=== PATIENT | female | born 1995 | race Caucasian/White ===

== ENCOUNTER 2018-09-27 10:18 | Inpatient (IN) | payer BC, MEDICAID, OTHER ==
[2018-09-27] VITALS (24 sets, daily range): BP systolic 93–121; BP diastolic 56–76; PULSE 74–120; RESP 7–29; Ht 154.9 cm; Wt 56.0 kg
[~2018-09-27] VITALS: Ht 154.9 cm; Wt 56.0 kg
[2018-09-27] MEDS ORDERED: SOD CHLORIDE 0.9% 500 ML IV STA (11:49)
[2018-09-27] MEDS ORDERED: ONDANSETRON 4 MG INJ IV STA (11:49)
[2018-09-27] MEDS ORDERED: FAMOTIDINE 20 MG INJ IV ONE (12:00)
--- NOTE | 2018-09-27 13:12 | ERD ---
ER Documentation Chief Complaint Chief Complaint sent fr clinic nausea vomitting & ap w/fever HPI 22-year-old female patient with no significant past medical history presents to ED complaining of an acute onset of diffuse abdominal pain that started yesterday associated with nonbilious nonbloody vomiting and nonmucoid nonbloody diarrhea that started yesterday, few episodes. Describes her pain is sharp and rates it a 10 out of 10. She reports that she has decreased appetite. Denies any chest pain, shortness of breath, wheezing, dysuria, urgency, frequency. ROS All systems reviewed and are negative except as per history of present illness. Medications Home Meds Active Scripts Ondansetron Hcl* (Zofran*) 4 Mg Tablet, 4 MG PO Q6H PRN for NAUSEA AND OR VOMITING, #15 TAB Prov:AILEEN CALDWELL S. 09/28/18 Metronidazole* (Flagyl*) 500 Mg Tablet, 500 MG PO TID for 7 Days, #21 TAB Prov:THALIA CALDWELLP S. 09/28/18 Ciprofloxacin Hcl* (Ciprofloxacin Hcl*) 250 Mg Tablet, 250 MG PO BID for 7 Days, #14 TAB Prov:THALIA CALDWELLP S. 09/28/18 Hydrocodone Bit-Acetaminophen (Hydrocodone Bit-APAP) 5-325MG Tablet, 1 TAB PO Q6H PRN for PAIN LEVEL 4-7, #14 TAB Prov:THALIA CALDWELLP S. 09/28/18 Allergies Allergies: Coded Allergies: No Known Allergy (Unverified , 09/27/18) PMhx/Soc Hx Alcohol Use: No Hx Substance Use: No Hx Tobacco Use: No Smoking Status: Never smoker FmHx Family History: No diabetes, No coronary disease Physical Exam Vitals Vital Signs Date Temp Pulse Resp B/P (MAP) Pulse Ox O2 O2 Flow FiO2 Time Delivery Rate 09/27/18 99.4 105 18 118/74 98 10:37 (89) Physical Exam Const: [id number], well-nourished. In no acute distress. Head: Atraumatic, normocephalic Eyes: Normal Conjunctiva without injection. No purulent discharge. ENT: Normal external ear, nose. Moist oropharynx without tonsillar exudates. Non-erythematous pharynx. Uvula midline. No drooling. No trismus. Neck: No cervical midline tenderness. Full range of motion. No meningismus. No cervical lymphadenopathy. No JVD. Resp: Clear to auscultation bilaterally. No wheezing, rhonchi, rales, or crackles. No accessory muscle use. No retractions. Cardio: Regular rate and rhythm. No murmurs, rubs or gallops. Abd: Soft, lower quadrant tenderness, non distended. Normal bowel sounds. No palpable masses. No rebound tenderness. No guarding. Positive McBurney's point. Positive obturator sign. Skin: No petechiae or rashes Back: No midline tenderness. No CVA tenderness. Ext: No cyanosis, or edema. Neur: Awake and alert. Normal gait. Normal coordination. Psych: Normal Mood and Affect Result Diagram: 09/28/1844209/28/18442 Results 24 hrs Laboratory Tests Test 09/27/18 12:03 09/27/18 12:08 POC Beta HCG, Qualitative NEGATIVE White Blood Count 27.5 10^3/ul Red Blood Count 5.15 10^6/ul Hemoglobin 13.9 g/dl Hematocrit 41.5 % Mean Corpuscular Volume 80.6 fl Mean Corpuscular Hemoglobin 27.0 pg Mean Corpuscular Hemoglobin Concent 33.5 g/dl Red Cell Distribution Width 12.5 % Platelet Count 348 10^3/UL Mean Platelet Volume 9.7 fl Immature Granulocytes % 0.700 % Neutrophils % % Segmented Neutrophils % (Manual) 87 % Lymphocytes % % Lymphocytes % (Manual) 6 % Monocytes % % Monocytes % (Manual) 7 % Eosinophils % % Basophils % % Nucleated Red Blood Cells % 0.0 /100WBC Immature Granulocytes # 0.200 10^3/ul Neutrophils # 10^3/ul Lymphocytes (Manual) 1.6 10^3/ul Lymphocytes # 10^3/ul Monocytes # 10^3/ul Monocytes # (Manual) 1.9 10^3/ul Eosinophils # 10^3/ul Basophils # 10^3/ul Nucleated Red Blood Cells # 10^3/ul White Cell Morphology Comment @See below Platelet Estimate NORMAL Anisocytosis 2+ Microcytosis 2+ Red Cell Morphology Comment @See below Urine Color YELLOW Urine Clarity SLIGHTLY CLOUDY Urine pH 6.0 Urine Specific [place] 1.013 Urine Ketones 1+ mg/dL Urine Nitrite NEGATIVE mg/dL Urine Bilirubin NEGATIVE mg/dL Urine Urobilinogen NEGATIVE mg/dL Urine Leukocyte Esterase 1+ Caren/ul Urine Microscopic RBC 110 /HPF Urine Microscopic WBC 8 /HPF Urine Squamous Epithelial Cells FEW /HPF Urine Bacteria FEW /HPF Urine Mucus FEW /HPF Urine Hemoglobin 3+ mg/dL Urine Glucose NEGATIVE mg/dL Urine Total Protein NEGATIVE mg/dl Path Consult Signing Pathologist IDA JONES MD Sodium Level 139 mmol/L Potassium Level 3.9 mmol/L Chloride Level 97 mmol/L Carbon Dioxide Level 28 mmol/L Anion Gap 14 Blood Urea Nitrogen 4 mg/dl Creatinine 0.39 mg/dl Est Glomerular Filtrat Rate mL/min > 60 mL/min Glucose Level 131 mg/dl Calcium Level 9.8 mg/dl Total Bilirubin 1.5 mg/dl Direct Bilirubin 0.00 mg/dl Indirect Bilirubin 1.5 mg/dl Aspartate Amino Transf (AST/SGOT) 23 IU/L Alanine Aminotransferase (ALT/SGPT) 10 IU/L Alkaline Phosphatase 85 IU/L Total Protein 8.6 g/dl Albumin 4.8 g/dl Globulin 3.80 g/dl Albumin/Globulin Ratio 1.26 Lipase 34 U/L Current Medications Medications Dose Sig/Ruddy Start Time Status Last (Trade) Ordered Route PRN Stop Time Admin Dose Reason Admin Sodium 500 ml @ Q1H STAT 09/27/18 DC 09/27/18 Chloride 500 mls/hr IV 11:49 12:05 09/27/18 12:48 Ondansetron 4 mg ONCE STAT 09/27/18 DC 09/27/18 HCl (Zofran IV 11:49 12:05 Inj) 09/27/18 11:55 Famotidine 20 mg ONCE ONCE 09/27/18 DC 09/27/18 (Pepcid Iv) IV 12:00 12:05 09/27/18 12:01 Ampicillin 100 ml @ ONCE ONCE 09/27/18 DC 09/27/18 Sodium/ 100 mls/hr IVPB 13:30 14:27 Sulbactam 09/27/18 14:29 Sodium IV Flush 3 ml PER 09/27/18 DC (NS 3 ml) PROTOCOL IV 13:30 09/28/18 14:19 Ondansetron 4 mg Q6H PRN 09/27/18 DC HCl (Zofran IV 13:30 Inj) NAUSEA/VOMITI 09/28/18 14:19 NG 650 mg Q6H PRN 09/27/18 DC Acetaminophen PO .PAIN 1-3 13:30 (Tylenol OR TEMP 09/27/18 16:25 Tab) 1 tab Q6H PRN 09/27/18 DC 09/27/18 Acetaminophen PO .MOD PAIN 13:30 23:40 / 4-6 09/28/18 14:19 Hydrocodone Bitart ([place] (5/325)) Morphine 2 mg Q4H PRN 09/27/18 DC Sulfate IV .SEVERE 13:30 (morphine) PAIN 7-10 09/28/18 14:19 Docusate 100 mg Q12H PRN 09/27/18 DC Sodium PO 13:30 (Colace) .CONSTIPATION 09/28/18 14:19 Magnesium 30 ml DAILY PRN 09/27/18 DC Hydroxide PO 13:30 (Milk Of Mag) .CONSTIPATION 09/28/18 14:19 Lorazepam 0.5 mg Q6H PRN 09/27/18 DC (Ativan) IV ANXIETY 13:30 09/28/18 14:19 Sodium 1,000 ml @ Q10H IV 09/27/18 DC 09/27/18 Chloride 100 mls/hr 13:28 16:11 09/28/18 14:19 Albuterol/ 3 ml Q4H RESP 09/27/18 DC Ipratropium THERAPY PRN 13:30 (Duoneb) HHN 09/28/18 14:19 SHORTNESS OF BREATH Hydralazine 10 mg Q6H PRN 09/27/18 DC HCl IV ELEVATED 13:30 (Apresoline) BLOOD 09/28/18 14:19 PRESSURE 1 tab Q5M PRN 09/27/18 DC Nitroglycerin SL ANGINA 13:30 09/28/18 14:19 (Nitroglyceri n (Sl Tab) 0.4 Mg) Ondansetron 4 mg BRIDGE ORDER 09/27/18 DC HCl (Zofran PRN IV 13:30 Inj) NAUSEA/VOMITI 09/27/18 15:09 NG 650 mg ER BRIDGE 09/27/18 DC Acetaminophen PRN PO 13:30 (Tylenol .MILD PAIN 09/27/18 15:09 Tab) 1-3 OR TEMP Procedures/MDM 22 year old female patient with no significant past medical history presents to ED complaining of diffuse abdominal pain patient is afebrile and nontoxic-appearing. Patient was further worked up with CBC, CMP, lipase, UA, CT of the abdomen and pelvis without contrast. Patient's pain and symptoms have improved after treatment with 500 mL normal saline, 4 mg IV Zofran, 30 mg IV Toradol. CBC: Leukocytosis of 27.5. No e/o anemia. CMP: No e/o severe acidosis, alkalosis, renal failure, diabetic ketoacidosis, liver disease Lipase within normal limits. Urine: No leukocyte esterase, no nitrites, no hematuria. Urine : Negative Patient has acute appendicitis. This was discussed with my supervising physician, Dr. Hansen who agreed with the management and admission plan. Patient will need surgical consultation. Patient agreed with the admission. Patient is hemodynamically stable. Departure Diagnosis: Primary Impression: Appendicitis Appendicitis type: acute appendicitis Acute appendicitis type: unspecified acute appendicitis type Qualified Codes: K35.80 - Unspecified acute appendicitis Condition: Serious MICHAEL GARCIA PA-C Sep 27, 2018 13:12
[2018-09-27] MEDS ORDERED: NITROGLYCERIN (SL) 0.4 MG TAB SL PRN (13:30)
[2018-09-27] MEDS ORDERED: hydrALAzine 20 MG INJ IV PRN ×2 (13:30→15:00)
[2018-09-27] MEDS ORDERED: ALBUTEROL/IPRATROPIUM (NEB) 3 ML AMP HHN PRN (13:30)
[2018-09-27] MEDS ORDERED: LORAZEPAM 2 MG INJ IV PRN (13:30)
[2018-09-27] MEDS ORDERED: ONDANSETRON 4 MG INJ IV PRN ×4 (13:30→16:00)
[2018-09-27] MEDS ORDERED: morphine 2 MG INJ IV PRN (13:30)
[2018-09-27] MEDS ORDERED: MAGNESIUM HYDROXIDE 30ML CUP PO PRN (13:30)
[2018-09-27] MEDS ORDERED: DOCUSATE SODIUM 100 MG CAP PO PRN (13:30)
[2018-09-27] MEDS ORDERED: NACL 0.9% 3 ML SYG IV SCH (13:30)
[2018-09-27] MEDS ORDERED: HYDROCODONE/APAP (5/325) TAB PO PRN ×2 (13:30→16:00)
[2018-09-27] MEDS ORDERED: ACETAMINOPHEN 325 MG TAB PO PRN ×3 (13:30→16:00)
[2018-09-27] MEDS ORDERED: AMPICILLIN/SULB 3 GM/NS (PMX) 100 ML IVPB ONE (13:30)
[2018-09-27] MEDS ORDERED: BUPIVACAINE 0.5%/EPI (SDV) 30 ML INJ ONE (14:35)
--- NOTE | 2018-09-27 14:52 | PREAC ---
Date/Time of Note Date/Time of Note DATE: 09/27/18 TIME: 14:51 Anesthesia Eval and Record Evaluation Time Pre-Procedure Interview DATE: 09/27/18 TIME: 14:51 Age 22 Sex female NPO: 8 hrs Preoperative diagnosis ACUTE APPENDICITIS Planned procedure LAP APPENDECTOMY Past Medical History Past Medical History: Includes GI: GERD Surgery & Anesthesia Issues No known issue Meds Anticoagulation: No Beta Sivakumar within 24 hr: No Reason Beta Sivakumar not given: Pt. not on B-Sivakumar Current Medications IV Flush (NS 3 ml) 3 ml PER PROTOCOL IV ; Start 09/27/18 at 13:30 Ondansetron HCl (Zofran Inj) 4 mg Q6H PRN IV NAUSEA/VOMITING; Start 09/27/18 at 13:30 Acetaminophen (Tylenol Tab) 650 mg Q6H PRN PO .PAIN 1-3 OR TEMP; Start 09/27/18 at 13:30 Acetaminophen/ Hydrocodone Bitart ([place] (5/325)) 1 tab Q6H PRN PO .MOD PAIN 4- 6; Start 09/27/18 at 13:30 Morphine Sulfate (morphine) 2 mg Q4H PRN IV .SEVERE PAIN 7-10; Start 09/27/18 at 13:30 Docusate Sodium (Colace) 100 mg Q12H PRN PO .CONSTIPATION; Start 09/27/18 at 13:30 Magnesium Hydroxide (Milk Of Mag) 30 ml DAILY PRN PO .CONSTIPATION; Start 09/27/18 at 13:30 Heparin Sodium (Porcine) (Heparin (5000 Units/1ml)) 5,000 unit Q12 SC ; Start 09/27/18 at 21:00 Lorazepam (Ativan) 0.5 mg Q6H PRN IV ANXIETY; Start 09/27/18 at 13:30 Sodium Chloride 1,000 ml @ 100 mls/hr Q10H IV ; Start 09/27/18 at 13:28 Albuterol/ Ipratropium (Duoneb) 3 ml Q4H RESP THERAPY PRN HHN SHORTNESS OF SIS TH; Start 09/27/18 at 13:30 Piperacillin Sod/ Tazobactam Sod 100 ml @ 200 mls/hr Q6 IVPB ; Start 09/27/18 at 18:00 Hydralazine HCl (Apresoline) 10 mg Q6H PRN IV ELEVATED BLOOD PRESSURE; Start 09/27/18 at 13:30 Nitroglycerin (Nitroglycerin (Sl Tab) 0.4 Mg) 1 tab Q5M PRN SL ANGINA; Start 09/27/18 at 13:30 Ondansetron HCl (Zofran Inj) 4 mg BRIDGE ORDER PRN IV NAUSEA/VOMITING; Start 09/27/18 at 13:30; Stop 09/28/18 at 13:29 Acetaminophen (Tylenol Tab) 650 mg ER BRIDGE PRN PO .MILD PAIN 1-3 OR TEMP; Start 09/27/18 at 13:30; Stop 09/28/18 at 13:29 Meds reviewed: Yes Allergies Coded Allergies: No Known Allergy (Unverified , 09/27/18) Allergies Reviewed: Yes Labs/Studies Labs Reviewed: Reviewed by anesthesiologist Result Diagram: 09/27/18 1208 09/27/18 1208 Laboratory Tests 09/27/18 12:08 test: Negative Pre-procedure Exam Last vitals Vital Signs Date Temp Pulse Resp B/P (MAP) Pulse Ox O2 O2 Flow FiO2 Time Delivery Rate 09/27/18 98.4 82 18 122/67 98 Room Air 14:20 (85) Airway: Adequate mouth opening, Adequate thyromental dist Mallampati: Mallampati II Teeth: Normal Lung: Normal Heart: Normal ASA Physical Status ASA physical status: 1 Emergency: E Planned Anesthetic General/MAC: ETT Nerve block: TAP (bilateral) Planned Pain Management Parenteral pain med Pre-operative Attestations Prior to commencing anesthesia and surgery, the patient was re-evaluated, there was verification of: *The patient's identity *The results of appropriate recent lab work and preoperative vital signs *The above evaluation not changing prior to induction *Anesthetic plan, risk benefits, alternative and complications discussed with patient/family; questions answered; patient/family understands, accepts and wishes to proceed. Chepe Hansen M.D. Sep 27, 2018 14:52
[2018-09-27] MEDS ORDERED: PROPOFOL 20 ML ONE (14:53)
[2018-09-27] MEDS ORDERED: MIDAZOLAM 1 MG/ML 2 ML INJ ONE (14:53)
[2018-09-27] MEDS ORDERED: ROCURONIUM 50 MG INJ ONE (14:53)
[2018-09-27] MEDS ORDERED: CEFAZOLIN 1 GM INJ ONE (14:53)
[2018-09-27] MEDS ORDERED: FENTAnyl 50 MCG/ML VIAL ONE ×2 (14:53→15:27)
[2018-09-27] MEDS ORDERED: ONDANSETRON 4 MG INJ ONE (14:53)
[2018-09-27] MEDS ORDERED: NEOSTIGMINE 3 MG/3 ML SYRINGE ONE (14:53)
[2018-09-27] MEDS ORDERED: GLYCOPYRROLATE 0.4 MG INJ ONE (14:53)
[2018-09-27] MEDS ORDERED: DEXAMETHASONE 4 MG/ML 5 ML INJ ONE (14:54)
[2018-09-27] MEDS ORDERED: ROPIVACAINE 0.5 % 30 ML VIAL ONE (14:56)
[2018-09-27] MEDS ORDERED: OXYCODONE/ACETAMINOPHEN (5/325) TAB PO PRN ×2 (15:00)
[2018-09-27] MEDS ORDERED: LABETALOL HCL 20MG INJ IV PRN (15:00)
[2018-09-27] MEDS ORDERED: HYDROmorphONE 1 MG/5 ML IV SYRINGE IV PRN ×3 (15:00)
[2018-09-27] MEDS ORDERED: IPRATROPIUM (NEB) 0.5 MG/2.5 ML AMP HHN PRN (15:00)
[2018-09-27] MEDS ORDERED: MIDAZOLAM 1 MG/ML 2 ML INJ IV PRN (15:00)
[2018-09-27] MEDS ORDERED: EPHEDrine SULFATE 50 MG/5 ML SYG IV PRN (15:00)
[2018-09-27] MEDS ORDERED: FENTAnyl 50 MCG/ML VIAL IV PRN ×3 (15:00)
[2018-09-27] MEDS ORDERED: ALBUTEROL 0.083% (NEB) 2.5 MG/3 ML AMP HHN PRN (15:00)
[2018-09-27] MEDS ORDERED: DIPHENHYDRAMINE 50 MG INJ IV PRN (15:00)
[2018-09-27] MEDS ORDERED: TRIMETHOBENZAMIDE 100 MG/ML VIAL IM PRN (15:00)
[2018-09-27] MEDS ORDERED: MEPERIDINE 25 MG INJ IV PRN (15:00)
--- NOTE | 2018-09-27 15:10 | CONS ---
Assessment/Plan Assessment/Plan Hospital Course (Demo Recall) Patient was examined in the emergency room. CT scan was ordered that revealed findings consistent with acute appendicitis, dilated appendix with appendicolith. White blood count was found to be 27,000. Assessment/Plan (Daily) Acute appendicitis. The patient is consented for laparoscopic possible open appendectomy. We discussed risks and benefits including but not limited to bleeding infection injury to other organs. Patient understood risk and benefits wished to proceed. Consultation Date/Type/Reason Admit Date/Time Sep 27, 2018 at 13:31 Date of Consultation: Sep 27, 2018 Type of Consult Surgical Reason for Consultation Right lower quadrant abdominal pain Date/Time of Note DATE: 09/27/18 TIME: 15:04 Hx of Present Illness 22-year-old otherwise healthy female woke up yesterday from the diffuse abdominal pain associated with nausea and vomiting. Patient was significantly worse over the treatment next 24 hours and she referred herself to the primary care physician who referred her to the emergency room. Constitutional: no complaints, improved Eyes: no complaints ENT: no complaints Respiratory: no complaints Cardiovascular: no complaints Gastrointestinal: pain, decreased appetite, nausea Genitourinary: no complaints Musculoskeletal: no complaints Skin: no complaints Neurologic: no complaints Endocrine: no complaints Lymphatic: no complaints Psychological: no complaints, nl mood/affect Past Medical History Medications Current Medications IV Flush (NS 3 ml) 3 ml PER PROTOCOL IV ; Start 09/27/18 at 13:30 Ondansetron HCl (Zofran Inj) 4 mg Q6H PRN IV NAUSEA/VOMITING; Start 09/27/18 at 13:30 Acetaminophen (Tylenol Tab) 650 mg Q6H PRN PO .PAIN 1-3 OR TEMP; Start 09/27/18 at 13:30 Acetaminophen/ Hydrocodone Bitart ([place] (5/325)) 1 tab Q6H PRN PO .MOD PAIN 4- 6; Start 09/27/18 at 13:30 Morphine Sulfate (morphine) 2 mg Q4H PRN IV .SEVERE PAIN 7-10; Start 09/27/18 at 13:30 Docusate Sodium (Colace) 100 mg Q12H PRN PO .CONSTIPATION; Start 09/27/18 at 13:30 Magnesium Hydroxide (Milk Of Mag) 30 ml DAILY PRN PO .CONSTIPATION; Start 09/27/18 at 13:30 Heparin Sodium (Porcine) (Heparin (5000 Units/1ml)) 5,000 unit Q12 SC ; Start 09/27/18 at 21:00 Lorazepam (Ativan) 0.5 mg Q6H PRN IV ANXIETY; Start 09/27/18 at 13:30 Sodium Chloride 1,000 ml @ 100 mls/hr Q10H IV ; Start 09/27/18 at 13:28 Albuterol/ Ipratropium (Duoneb) 3 ml Q4H RESP THERAPY PRN HHN SHORTNESS OF BREATH; Start 09/27/18 at 13:30 Piperacillin Sod/ Tazobactam Sod 100 ml @ 200 mls/hr Q6 IVPB ; Start 09/27/18 at 18:00 Hydralazine HCl (Apresoline) 10 mg Q6H PRN IV ELEVATED BLOOD PRESSURE; Start at 13:30 Nitroglycerin (Nitroglycerin (Sl Tab) 0.4 Mg) 1 tab Q5M PRN SL ANGINA; Start 09/27/18 at 13:30 Ondansetron HCl (Zofran Inj) 4 mg BRIDGE ORDER PRN IV NAUSEA/VOMITING; Start 09/27/18 at 13:30; Stop 09/28/18 at 13:29 Acetaminophen (Tylenol Tab) 650 mg ER BRIDGE PRN PO .MILD PAIN 1-3 OR TEMP; Start 09/27/18 at 13:30; Stop 09/28/18 at 13:29 Hydromorphone HCl (Dilaudid) 0.2 mg PACU PRN IV MILD PAIN 1-3; Start 09/27/18 at 15:00; Status UNV Hydromorphone HCl (Dilaudid) 0.4 mg PACU PRN IV MOD PAIN 4-6; Start 09/27/18 at 15:00; Status UNV Hydromorphone HCl (Dilaudid) 0.6 mg PACU PRN IV SEVERE PAIN 7-10; Start 09/27/18 at 15:00; Status UNV Fentanyl (Sublimaze) 25 mcg PACU ORDER PRN IV MILD PAIN 1-3; Start 09/27/18 at 15:00; Status UNV Fentanyl (Sublimaze) 50 mcg PACU ORDER PRN IV MOD PAIN 4-6; Start 09/27/18 at 15:00; Status UNV Fentanyl (Sublimaze) 75 mcg PACU ORDER PRN IV SEVERE PAIN 7-10; Start 09/27/18 at 15:00; Status UNV Oxycodone/ Acetaminophen (Percocet (5/ 325)) 1 tab PACU ORDER PRN PO .PAIN 1-5; Start 09/27/18 at 15:00; Status UNV Oxycodone/ Acetaminophen (Perc[place]et (5/ 325)) 2 tab PACU ORDER PRN PO .PAIN 6-10; Start 09/27/18 at 15:00; Status UNV Ondansetron HCl (Zofran Inj) 4 mg PACU ORDER PRN IV NAUSEA/VOMITING; Start 09/27/18 at 15:00; Status UNV Trimethobenzamide HCl (Tigan) 200 mg PACU ORDER PRN IM NAUSEA/VOMITING; Start 09/27/18 at 15:00; Status UNV Labetalol HCl (Labetalol) 5 mg PACU ORDER PRN IV HIGH BLOOD PRESSURE; Start 09/27/18 at 15:00; Status UNV Hydralazine HCl (Apresoline) 5 mg PACU ORDER PRN IV HIGH BLOOD PRESSURE; Start 09/27/18 at 15:00; Status UNV Ephedrine Sulfate 5 mg PACU ORDER PRN IV BLOOD PRESSURE SUPPORT; Start 09/27/18 at 15:00; Status UNV Albuterol (Proventil 0.083% (Neb)) 2.5 mg PACU ORDER PRN HHN .WHEEZING; Start 09/27/18 at 15:00; Status UNV Ipratropium [place] (Atrovent 0.02% (Neb)) 0.5 mg PACU ORDER PRN HHN .WHEEZING; Start 09/27/18 at 15:00; Status UNV Meperidine HCl (Demerol) 25 mg PACU ORDER PRN IV .RIGORS; Start 09/27/18 at 15:00; Status UNV Diphenhydramine HCl (Benadryl) 25 mg PACU ORDER PRN IV .PRURITUS; Start 09/27/18 at 15:00; Status UNV Midazolam HCl (Versed) 0.5 mg PACU ORDER PRN IV .ANXIETY; Start 09/27/18 at 15:00; Status UNV Allergies: Coded Allergies: No Known Allergy (Unverified , 09/27/18) Social History Smoking Status: Never smoker Exam/Review of Systems Exam Vitals Vital Signs Date Temp Pulse Resp B/P (MAP) Pulse Ox O2 O2 Flow FiO2 Time Delivery Rate 09/27/18 98.4 82 18 122/67 98 Room Air 14:20 (85) Constitutional: alert, oriented, well developed Psych: no complaints, nl mood/affect Head: normocephalic, atraumatic Eyes: nl conjunctiva, EOMI, nl lids, nl sclera, PERRL ENMT: nl external ears & nose, nl lips & teeth, nl nasal mucosa & septum Neck: supple, non-tender Respiratory: clear to auscultation, normal air movement Cardiovascular: regular rate and rhythm, nl pulses Gastrointestinal: other (Tender in the right lower quadrant with rebound) Genitourinary - Female: No nl adnexae, No nl external genitalia, No CMT, No CVA tenderness, No uterus, No other Musculoskeletal: nl extremities to inspection, nl gait and stance Extremities: normal pulses Neurological: STOCK AND STATION AGENT II-XII intact, nl mental status, nl speech, nl strength Skin: nl turgor; No rash or lesions Results Result Diagram: 09/27/18 1208 09/27/18 1208 Results 24hrs Laboratory Tests Test 09/27/18 12:03 09/27/18 12:08 09/27/18 13:49 POC Beta HCG, Qualitative NEGATIVE White Blood Count 27.5 H Red Blood Count 5.15 Hemoglobin 13.9 Hematocrit 41.5 Mean Corpuscular Volume 80.6 L Mean Corpuscular Hemoglobin 27.0 L Mean Corpuscular Hemoglobin Concent 33.5 Red Cell Distribution Width 12.5 Platelet Count 348 Mean Platelet Volume 9.7 Immature Granulocytes % 0.700 H Neutrophils % Segmented Neutrophils % (Manual) 87 H Lymphocytes % Lymphocytes % (Manual) 6 L Monocytes % Monocytes % (Manual) 7 Eosinophils % Basophils % Nucleated Red Blood Cells % 0.0 Immature Granulocytes # 0.200 H Neutrophils # Lymphocytes (Manual) 1.6 Lymphocytes # Monocytes # Monocytes # (Manual) 1.9 H Eosinophils # Basophils # Nucleated Red Blood Cells # White Cell Morphology Comment @See below Platelet Estimate NORMAL Anisocytosis 2+ Microcytosis 2+ Red Cell Morphology Comment @See below Sodium Level 139 Potassium Level 3.9 Chloride Level 97 Carbon Dioxide Level 28 Anion Gap 14 H Blood Urea Nitrogen 4 L Creatinine 0.39 L Est Glomerular Filtrat Rate mL/min > 60 Glucose Level 131 Calcium Level 9.8 Total Bilirubin 1.5 H Direct Bilirubin 0.00 Indirect Bilirubin 1.5 H Aspartate Amino Transf (AST/SGOT) 23 Alanine Aminotransferase (ALT/SGPT) 10 L Alkaline Phosphatase 85 Total Protein 8.6 H Albumin 4.8 Globulin 3.80 H Albumin/Globulin Ratio 1.26 Lipase 34 Prothrombin Time 15.2 H Prothrombin Time Ratio 1.2 INR International Normalized Ratio 1.19 Activated Partial Thromboplast Time 28.6 Lactic Acid Level 2.1 *H Free Thyroxine 1.12 Medications Medication Current Medications IV Flush (NS 3 ml) 3 ml PER PROTOCOL IV ; Start 09/27/18 at 13:30 Ondansetron HCl (Zofran Inj) 4 mg Q6H PRN IV NAUSEA/VOMITING; Start 09/27/18 at 13:30 Acetaminophen (Tylenol Tab) 650 mg Q6H PRN PO .PAIN 1-3 OR TEMP; Start 09/27/18 at 13:30 Acetaminophen/ Hydrocodone Bitart ([place] (5/325)) 1 tab Q6H PRN PO .MOD PAIN 4- 6; Start 09/27/18 at 13:30 Morphine Sulfate (morphine) 2 mg Q4H PRN IV .SEVERE PAIN 7-10; Start 09/27/18 at 13:30 Docusate Sodium (Colace) 100 mg Q12H PRN PO .CONSTIPATION; Start 09/27/18 at 13:30 Magnesium Hydroxide (Milk Of Mag) 30 ml DAILY PRN PO .CONSTIPATION; Start 09/27/18 at 13:30 Heparin Sodium (Porcine) (Heparin (5000 Units/1ml)) 5,000 unit Q12 SC ; Start 09/27/18 at 21:00 Lorazepam (Ativan) 0.5 mg Q6H PRN IV ANXIETY; Start 09/27/18 at 13:30 Sodium Chloride 1,000 ml @ 100 mls/hr Q10H IV ; Start 09/27/18 at 13:28 Albuterol/ Ipratropium (Duoneb) 3 ml Q4H RESP THERAPY PRN HHN SHORTNESS OF BREATH; Start 09/27/18 at 13:30 Piperacillin Sod/ Tazobactam Sod 100 ml @ 200 mls/hr Q6 IVPB ; Start 09/27/18 at 18:00 Hydralazine HCl (Apresoline) 10 mg Q6H PRN IV ELEVATED BLOOD PRESSURE; Start 09/27/18 at 13:30 Nitroglycerin (Nitroglycerin (Sl Tab) 0.4 Mg) 1 tab Q5M PRN SL ANGINA; Start 09/27/18 at 13:30 Ondansetron HCl (Zofran Inj) 4 mg BRIDGE ORDER PRN IV NAUSEA/VOMITING; Start 09/27/18 at 13:30; Stop 09/28/18 at 13:29 Acetaminophen (Tylenol Tab) 650 mg ER BRIDGE PRN PO .MILD PAIN 1-3 OR TEMP; Start 09/27/18 at 13:30; Stop 09/28/18 at 13:29 Hydromorphone HCl (Dilaudid) 0.2 mg PACU PRN IV MILD PAIN 1-3; Start 09/27/18 at 15:00; Status UNV Hydromorphone HCl (Dilaudid) 0.4 mg PACU PRN IV MOD PAIN 4-6; Start 09/27/18 at 15:00; Status UNV Hydromorphone HCl (Dilaudid) 0.6 mg PACU PRN IV SEVERE PAIN 7-10; Start 09/27/18 at 15:00; Status UNV Fentanyl (Sublimaze) 25 mcg PACU ORDER PRN IV MILD PAIN 1-3; Start 09/27/18 at 15:00; Status UNV Fentanyl (Sublimaze) 50 mcg PACU ORDER PRN IV MOD PAIN 4-6; Start 09/27/18 at 15:00; Status UNV Fentanyl (Sublimaze) 75 mcg PACU ORDER PRN IV SEVERE PAIN 7-10; Start 09/27/18 at 15:00; Status UNV Oxycodone/ Acetaminophen (Percocet (5/ 325)) 1 tab PACU ORDER PRN PO .PAIN 1-5; Start 09/27/18 at 15:00; Status UNV Oxycodone/ Acetaminophen ([place]et (5/ 325)) 2 tab PACU ORDER PRN PO .PAIN 6-10; Start 09/27/18 at 15:00; Status UNV Ondansetron HCl (Zofran Inj) 4 mg PACU ORDER PRN IV NAUSEA/VOMITING; Start 09/27/18 at 15:00; Status UNV Trimethobenzamide HCl (Tigan) 200 mg PACU ORDER PRN IM NAUSEA/VOMITING; Start 09/27/18 at 15:00; Status UNV Labetalol HCl (Labetalol) 5 mg PACU ORDER PRN IV HIGH BLOOD PRESSURE; Start 09/27/18 at 15:00; Status UNV Hydralazine HCl (Apresoline) 5 mg PACU ORDER PRN IV HIGH BLOOD PRESSURE; Start 09/27/18 at 15:00; Status UNV Ephedrine Sulfate 5 mg PACU ORDER PRN IV BLOOD PRESSURE SUPPORT; Start 09/27/18 at 15:00; Status UNV Albuterol (Proventil 0.083% (Neb)) 2.5 mg PACU ORDER PRN HHN .WHEEZING; Start 09/27/18 at 15:00; Status UNV Ipratropium [place] (Atrovent 0.02% (Neb)) 0.5 mg PACU ORDER PRN HHN .WHEEZING; Start 09/27/18 at 15:00; Status UNV Meperidine HCl (Demerol) 25 mg PACU ORDER PRN IV .RIGORS; Start 09/27/18 at 15:00; Status UNV Diphenhydramine HCl (Benadryl) 25 mg PACU ORDER PRN IV .PRURITUS; Start 09/27/18 at 15:00; Status UNV Midazolam HCl (Versed) 0.5 mg PACU ORDER PRN IV .ANXIETY; Start 09/27/18 at 15:00; Status UNV MT HERRERA MD Sep 27, 2018 15:10
[2018-09-27] MEDS ORDERED: METOCLOPRAMIDE 10 MG INJ ONE (15:43)
[2018-09-27] MEDS ORDERED: KETOROLAC 30 MG INJ ONE (15:43)
[2018-09-27] MEDS: D5W-0.45 NACL + KCL 20 MEQ 1,000 ML IV SCH (15:53)
--- NOTE | 2018-09-27 15:53 | OPR ---
Date/Time of Note Date/Time of Note DATE: 09/27/18 TIME: 15:48 Operative Report Procedure Date: Sep 27, 2018 Preoperative Diagnosis Acute appendicitis Postoperative Diagnosis Acute phlegmonous appendicitis Operation/Procedure Performed Laparoscopic appendectomy Surgeon see signature line Plier Worker None Anesthesia Type: general Anesthesiologist: A Estimated Blood Loss: minimal Transfusion none Specimen Appendix Grafts/Implants none Complications none Pt Condition Post Procedure: stable Procedure Description Patient was brought to the operating room positioned supine. General endotracheal anesthesia was induced. A timeout was performed. Abdomen was prepped and draped. Veress needle was placed through the small infraumbilical incision and the abdomen was insufflated with CO2 up to 15 mmHg. For the same incision 5 mm trocar was placed under direct control of the laparoscope. The abdomen was inspected acute appendicitis with phlegmonous component was found. No injury from Veress or trocar placement were identified. Additional 5 mm trocar was placed in the midline below the umbilicus. Additional 12 mm trocar was placed just above the pubis. The appendix was dissected off the terminal ileal mesentery and the window was created using blunt dissection at the mesente ry of the appendix just next to the cecum. The 45 mm vascular cautery was used to divide the appendix and the mesentery. Hemostasis was achieved. The appendix was placed into the specimen and removed through the 12 mm trocar site. Abdomen was irrigated all the fluid was carefully sucked out especially from the cul-de-sac. Status was again confirmed and the abdomen was desufflated. Trocars were removed. The 12 mm trocar site was closed in 2 layers using 0 Vicryl for the fascia and 4-0 Monocryl for the skin. Millimeter trocar site were closed using 4-0 Monocryl patient tolerated procedure well was extubated transferred to recovery room. By the end of procedure anesthesiologist performed a tap block. MT HERRERA MD Sep 27, 2018 15:53
--- NOTE | 2018-09-27 15:58 | PAC ---
Date/Time of Note Date/Time of Note DATE: 09/27/18 TIME: 15:58 Post-Anesthesia Notes Post-Anesthesia Note Last documented vital signs Vital Signs Date Temp Pulse Resp B/P (MAP) Pulse Ox O2 O2 Flow FiO2 Time Delivery Rate 09/27/18 98.4 82 18 122/67 98 Room Air 14:20 (85) Activity: WNL Respiratory function: WNL Cardiovascular function: WNL Mental status: Baseline Pain reasonably controlled: Yes Hydration appropriate: Yes Nausea/Vomiting absent: Yes Chepe Hansen M.D. Sep 27, 2018 15:58
[2018-09-27] MEDS ORDERED: HYDROmorphONE 0.5 MG/0.5 ML SYG IV PRN (16:00)
[2018-09-27] MEDS ORDERED: DIPHENHYDRAMINE 25 MG CAP PO PRN (16:00)
[2018-09-27] MEDS ORDERED: METOCLOPRAMIDE 10 MG INJ IV PRN (16:00)
[2018-09-27] MEDS ORDERED: KETOROLAC 15 MG INJ IV PRN (16:00)
[2018-09-27] MEDS ORDERED: IBUPROFEN 600 MG TAB PO PRN (16:00)
[2018-09-27] MEDS: SOD CHLORIDE 0.9% 1,000 ML IV SCH ×2 (16:11→23:28)
--- NOTE | 2018-09-27 16:50 | HP ---
DATE OF ADMISSION: 09/27/2018 CHIEF COMPLAINT: Abdominal pain. HISTORY OF PRESENT ILLNESS: 22-year-old female with no significant past medical history, who has been having abdominal pain. The symptoms began yesterday. She described it as epigastric pain mildly, radiating to the right lower quadrant. She has never had this pain before. She also had some nonbilious, nonbloody vomiting, also some nausea symptoms. Also, some mild diarrhea. No signs of any upper or lower GI bleeding, no fevers or chills, no constipation, no chest pain or shortness of breath. When she arrived to the emergency room today, she had a CT scan abdomen and pelvis performed that showed signs of acute appendicitis. Appendix was fluid-filled and dilated with adjacent fatty stranding and containing multiple appendicoliths, largest measuring up to 8.4 mm; multiple adjacent mesenteric lymph nodes are noted as well and because of the CT scan findings, a call was made out to the surgeon who evaluated the patient. They took the patient to the OR earlier today. The patient is presently in the recovery room. The patient had laparoscopic appendectomy performed. The patient, when she presented today, also was found with elevated white blood cell count of 27.5, lactic acid was 2.1 as well, temperature was 100.0. The patient stated she tried Pepto-Bismol and Tylenol at home which had minimal relief of her symptoms, so she decided to come into the ER today. PAST MEDICAL HISTORY: As above. ALLERGIES: NO KNOWN DRUG ALLERGIES. HOME MEDICATIONS: None. PAST SURGICAL HISTORY: None. SOCIAL HISTORY: Negative for smoking, drinking, or IV drug abuse. PHYSICAL EXAMINATION: VITAL SIGNS: T-max 100.0, pulse 74 to 110, respirations 9 to 29, blood pressure is 110/56, satting at 100% on 3 liters nasal cannula. GENERAL: The patient is answering questions appropriately, but appears to be lethargic as the anesthesia appears to be wearing off. Otherwise, no acute distress. HEENT: Pupils are equal, round and reactive to light. Extraocular muscles are intact. NECK: Supple, no thyromegaly. LUNGS: Clear to auscultation bilaterally. CARDIOVASCULAR: S1 and S2 heard. No rubs or gallops. ABDOMEN: Soft, nontender and nondistended. Normal bowel sounds. No rebound or guarding. MUSCULOSKELETAL: No lower extremity edema bilaterally. NEUROLOGIC: No focal deficits. LABORATORY DATA: The comprehensive metabolic panel appears to be normal except the total bilirubin is a little high at 1.5, but the direct is 0. Again, lactic acid 2.1. Rest of the CMP is normal. Coags are normal. WBC 27.5, hemoglobin 13.9, hematocrit 41.5, platelets 348. IMAGING: We mentioned the CT scan of abdomen and pelvis findings. ASSESSMENT AND PLAN: 22-year-old female with abdominal pain for 1 day, signs of acute appendicitis status post laparoscopic appendectomy earlier today. 1. Abdominal pain - secondary to acute appendicitis. Again, status post laparoscopic appendectomy about 1 hour ago. - Continue postoperative recovery care including pain medications, IV fluids, broad spectrum antibiotics, Tylenol p.r.n. pain and fevers. - Check TSH, A1c, lipid panel. - Follow up postop recommendations from surgery team. - Follow up any pending culture results. 2. Deep venous thrombosis prophylaxis - heparin subcutaneous. Dictated By: AILEEN GARCIA Conf#: [id number] DID#: [id number]
[2018-09-27] MEDS: PIPER-TAZO 3.375 GM IV (PMX) 100 ML IVPB SCH (19:23)
[2018-09-27] MEDS: HEPARIN 5,000 UNIT/1 ML VIAL SC SCH (21:32)
[2018-09-28 02:21] VITALS: BP 97/52; PULSE 76; RESP 18
[2018-09-28] MEDS: PIPER-TAZO 3.375 GM IV (PMX) 100 ML IVPB SCH ×3 (03:02→11:31)
[2018-09-28] MEDS: D5W-0.45 NACL + KCL 20 MEQ 1,000 ML IV SCH ×2 (03:02→11:53)
[2018-09-28 07:24] VITALS: BP 111/62; PULSE 78; RESP 19
[2018-09-28] MEDS: HEPARIN 5,000 UNIT/1 ML VIAL SC SCH (09:00)
--- NOTE | 2018-09-28 09:01 | PN ---
Date/Time of Note Date/Time of Note DATE: 09/28/18 TIME: 09:00 Assessment/Plan Lines/Catheters IV Catheter Type (from Nrsg): Peripheral IV Stock in Place (from Nrsg): No Subjective 24 Hr Interval Summary Constitutional: improved, ambulates Feeding: advancing diet Pain Control: well controlled Additional Comments Patient is doing well after laparoscopic appendectomy pain control vitals stable afebrile can be discharged home instructions given Exam/Review of Systems Vital Signs Vitals Vital Signs Date Temp Pulse Resp B/P (MAP) Pulse Ox O2 O2 Flow FiO2 Time Delivery Rate 09/28/18 98.4 78 19 111/62 98 Room Air 07:24 (78) 09/27/18 3.0 16:56 Intake and Output 09/27/18 09/27/18 09/28/18 1515:00 23:00 07:00 IntakeIntake Total 500 ml 1000 ml 1650 ml OutputOutput Total 695 ml BalanceBalance 500 ml 305 ml 1650 ml Results Result Diagram: 09/28/18 0443 09/28/18 0443 MT HERRERA MD Sep 28, 2018 09:01
[2018-09-28] MEDS: SOD CHLORIDE 0.9% 1,000 ML IV SCH (09:28)
[2018-09-28] MEDS ORDERED: POTASSIUM CHLORIDE (SR) 20 MEQ TAB PO STA (10:48)
--- NOTE | 2018-09-28 10:49 | PDOCDIS ---
Discharge Instructions CONDITION [id number] Patient Condition: [id number] Stable HOME CARE INSTRUCTIONS: [id number] Diet Instructions: Eixvs2i Low Fat /Cholesterol ACTIVITY: [id number] Activity Restrictions: [id number] Slowly Increase Activity Rest between Activity Avoid heavy lifting FOLLOW UP/APPOINTMENTS Follow-up Plan Please take your medications as prescribed, see your doctor in the clinic in the next 1 week AILEEN CALDWELL Sep 28, 2018 10:49
[2018-09-28] MEDS ORDERED: ONDA4TAB8 PO (10:50)
[2018-09-28] MEDS ORDERED: HYDR-3601 PO (10:50)
[2018-09-28] MEDS ORDERED: METR500T PO (10:50)
[2018-09-28] MEDS ORDERED: CIPR-193 PO (10:50)
--- NOTE | 2018-09-28 10:55 | DS ---
Date/Time of Note Date/Time of Note DATE: 09/28/18 TIME: 10:53 Discharge Summary Admission/Discharge Info Admit Date/Time Sep 27, 2018 at 13:31 Discharge Date/Time Discharge Diagnosis #Appendicitis: Status post laparoscopic appendectomy #Leukocytosis: Likely secondary to above, white blood cell count improving Patient Condition: Stable Procedures Date/Time of Note Date/Time of Note DATE: 09/27/18 TIME: 15:48 Operative Report Procedure Date: Sep 27, 2018 Preoperative Diagnosis Acute appendicitis Postoperative Diagnosis Acute phlegmonous appendicitis Operation/Procedure Performed Laparoscopic appendectomy Hx of Present Illness 22-year-old female with no significant past medical history, who has been having abdominal pain. The symptoms began yesterday. She described it as epigastric pain mildly, radiating to the right lower quadrant. She has never had this pain before. She also had some nonbilious, nonbloody vomiting, also some nausea symptoms. Also, some mild diarrhea. No signs of any upper or lower GI bleeding, no fevers or chills, no constipation, no chest pain or shortness of breath. When she arrived to the emergency room today, she had a CT scan abdomen and pelvis performed that showed signs of acute appendicitis. Appendix was fluid-filled and dilated with adjacent fatty stranding and containing multiple appendicoliths, largest measuring up to 8.4 mm; multiple adjacent mesenteric lymph nodes are noted as well and because of the CT scan findings, a call was made out to the surgeon who evaluated the patient. They took the patient to the OR earlier today. The patient is presently in the recovery room. The patient had laparoscopic appendectomy performed. The patient, when she presented today, also was found with elevated white blood cell count of 27.5, lactic acid was 2.1 as well, temperature was 100.0. The patient stated she tried Pepto-Bismol and Tylenol at home which had minimal relief of her symptoms, so she decided to come into the ER today. Hospital Course Patient was admitted to medical surgical unit, seen by surgery team and underwent laparoscopic appendectomy. Patient tolerated the procedure well. No further fevers after the procedure. Patient was able to ambulate, pass gas, tolerated p.o. diet. No significant nausea vomiting symptoms, abdominal pain was minimal. After getting clearance from the surgery team patient will be discharged home today improved condition. She will go home with pain control medications and antibiotics, see below for full list of discharge medications. Home Meds Active Scripts Ondansetron Hcl* (Zofran*) 4 Mg Tablet, 4 MG PO Q6H PRN for NAUSEA AND OR VOMITING, #15 TAB Prov:AILEEN ACLDWELL S. 09/28/18 Metronidazole* (Flagyl*) 500 Mg Tablet, 500 MG PO TID for 7 Days, #21 TAB Prov:AILEEN CALDWELL S. 09/28/18 Ciprofloxacin Hcl* (Ciprofloxacin Hcl*) 250 Mg Tablet, 250 MG PO BID for 7 Days, #14 TAB Prov:AILEEN CALDWELL S. 09/28/18 Hydrocodone Bit-Acetaminophen (Hydrocodone Bit-APAP) 5-325MG Tablet, 1 TAB PO Q6H PRN for PAIN LEVEL 4-7, #14 TAB Prov:AILEEN CALDWELL S. 09/28/18 Follow-up Plan Please take your medications as prescribed, see your doctor in the clinic in the next 1 week Primary Care Provider Care Physician No Primary Time spent on discharge: > 30 minutes Pending Labs Laboratory Tests Test 09/27/18 12:03 09/27/18 12:08 09/27/18 13:49 09/28/18 04:43 POC Beta HCG, NEGATIVE (NEGAT Qualitative [place]) White Blood 27.5 24.5 Count 10^3/ul (4.8-1 10^3/ul (4.8-1 0.8) 0.8) Red Blood 5.15 4.25 Count 10^6/ul (4.20- 10^6/ul (4.20- 5.40) 5.40) Hemoglobin 13.9 11.4 g/dl (12.0-16. g/dl (12.0-16. 0) 0) Hematocrit 41.5 34.6 % (37.0-47.0) % (37.0-47.0) Mean 80.6 81.4 Corpuscular fl (82.0-101.0 fl (82.0-101.0 Volume ) ) Mean 27.0 26.8 Corpuscular pg (29.0-33.0) pg (29.0-33.0) Hemoglobin Mean 33.5 32.9 Corpuscular g/dl (32.0-37. g/dl (32.0-37. Hemoglobin Conc 0) 0) ent Red Cell 12.5 13.0 Distribution % (11.5-14.5) % (11.5-14.5) Width Platelet Count 348 259 10^3/UL (140-4 10^3/UL (140-4 15) 15) Mean Platelet 9.7 10.3 Volume fl (7.4-10.4) fl (7.4-10.4) Immature 0.700 0.900 Granulocytes % % (0.001-0.429 % (0.001-0.429 ) ) Neutrophils % % (39.0-77.0) 90.1 % (39.0-77.0) Segmented 87 % (39-77) Neutrophils % (Manual) Lymphocytes % % (15.0-51.0) 4.0 % (15.0-51.0) Lymphocytes % 6 % (15-51) (Manual) Monocytes % % (0.0-11.0) 4.9 % (0.0-11.0) Monocytes % 7 % (0-11) (Manual) Eosinophils % % (0.0-7.0) 0.0 % (0.0-7.0) Basophils % % (0.0-2.0) 0.1 % (0.0-2.0) Nucleated Red 0.0 0.0 Blood Cells % /100WBC (0.0-0 /100WBC (0.0-0 .0) .0) Immature 0.200 0.220 Granulocytes # 10^3/ul (0.0-0 10^3/ul (0.0-0 .031) .031) Neutrophils # 10^3/ul (1.6-7 22.1 .5) 10^3/ul (1.6-7 .5) Lymphocytes 1.6 (Manual) 10^3/ul (0.8-2 .9) Lymphocytes # 10^3/ul (0.8-2 1.0 .9) 10^3/ul (0.8-2 .9) Monocytes # 10^3/ul (0.3-0 1.2 .9) 10^3/ul (0.3-0 .9) Monocytes # 1.9 (Manual) 10^3/ul (0.3-0 .9) Eosinophils # 10^3/ul (0.0-0 0.0 .5) 10^3/ul (0.0-0 .5) Basophils # 10^3/ul (0.0-0 0.0 .1) 10^3/ul (0.0-0 .1) Nucleated Red 10^3/ul (0.0-0 0.0 Blood Cells # .0) 10^3/ul (0.0-0 .0) White Cell @See below Morphology Comment Platelet NORMAL Estimate Anisocytosis 2+ (0-0) Microcytosis 2+ (0-0) Red Cell @See below Morphology Comment Urine Color YELLOW (YELLOW ) Urine Clarity SLIGHTLY CLOUD Y (CLEAR) Urine pH 6.0 (5.0-9.0) Urine Specific 1.013 (1.003-1 [place] .030) Urine Ketones 1+ mg/dL (NEGATIV E) Urine Nitrite NEGATIVE mg/dL (NEGATIV E) Urine NEGATIVE Bilirubin mg/dL (NEGATIV E) Urine NEGATIVE Urobilinogen mg/dL (NEGATIV E) Urine Leukocyte 1+ Esterase Caren/ul (NEGATI VE) Urine 110 /HPF (0-5) Microscopic RBC Urine 8 /HPF (0-5) Microscopic WBC Urine Squamous FEW /HPF (FEW) Epithelial Cell s Urine Bacteria FEW /HPF (NONE SEEN) Urine Mucus FEW /HPF (NONE SEEN) Urine 3+ Hemoglobin mg/dL (NEGATIV E) Urine Glucose NEGATIVE mg/dL (NEGATIV E) Urine Total NEGATIVE Protein mg/dl (NEGATIV E) Path Consult IDA JONES Signing MD Court gist Sodium Level 139 141 mmol/L (135-14 mmol/L (135-14 4) 4) Potassium 3.9 3.4 Level mmol/L (3.5-5. mmol/L (3.5-5. 1) 1) Chloride Level 97 107 mmol/L (97-110 mmol/L (97-110 ) ) Carbon Dioxide 28 26 Level mmol/L (21-31) mmol/L (21-31) Anion Gap 14 (5-13) 8 (5-13) Blood Urea 4 mg/dl (7-20) 7 mg/dl (7-20) Nitrogen Creatinine 0.39 0.41 mg/dl (0.44-1. mg/dl (0.44-1. 00) 00) Est Glomerular > 60 > 60 Filtrat mL/min (>60) mL/min (>60) Rate mL/min Glucose Level 131 121 mg/dl (70-220) mg/dl (70-220) Calcium Level 9.8 9.4 mg/dl (8.4-10. mg/dl (8.4-10. 2) 2) Total 1.5 Bilirubin mg/dl (0.2-1.3 ) Direct 0.00 Bilirubin mg/dl (0.00-0. 20) Indirect 1.5 Bilirubin mg/dl (0-1.1) Aspartate Amino 23 Transf (AST/SGO IU/L (15-46) T) Alanine 10 Aminotransferas IU/L (13-69) e (ALT/SGPT) Alkaline 85 Phosphatase IU/L (42-121) Total Protein 8.6 g/dl (6.1-8.1) Albumin 4.8 g/dl (3.3-4.9) Globulin 3.80 g/dl (1.3-3.2) Albumin/Globuli 1.26 n Ratio Lipase 34 U/L (23-300) Prothrombin 15.2 Time Sec (11.9-14.9 ) Prothrombin 1.2 Time Ratio INR 1.19 International Normalized Rati o Activated 28.6 Partial Thrombo Sec (23.0-35.0 plast Time ) Lactic Acid 2.1 Level mmol/L (0.5-2. 0) Free Thyroxine 1.12 ng/dl (0.79-2. 35) Hemoglobin A1c 5.1 % (0-5.9) Phosphorus 3.5 Level mg/dl (2.5-4.9 ) Magnesium 2.1 Level mg/dl (1.7-2.5 ) Triglycerides 49 Level mg/dl (0-149) Cholesterol 126 Level mg/dl (100-200 ) LDL 51 mg/dl Cholesterol, Calculated HDL 65 Cholesterol mg/dl (33-83) Cholesterol/HDL 1.9 RATIO Ratio Thyroid Pending Stimulating Hormone (TSH) AILEEN CALDWELL Sep 28, 2018 10:55
== END 2018-09-28 14:18 | disposition home or self-care (01) | DRG 343 ==
LOC: FTE 10:18 → SUATTDRO 13:26 → REC 13:31 → MS1 17:05
PROVIDERS: ADMIT Hospitalist; ATTEND Hospitalist
PROC: 0DTJ4ZZ Resection of Appendix, Percutaneous Endoscopic Approach (ICD-10-PCS; principal; 2018-09-27 17:00)
DX: K35.80 Unspecified acute appendicitis (principal)
CPT/HCPCS: 74176; 80048; 80053; 80061; 81001; 81025; 83036; 83605; 83690; 83735; 84100; 84439; 84443; 85025; 85610; 85730; 88304; J0295; J0690; J1100; J1644; J1885; J2250; J2405; J2543; J2710; J2765; J2795; J3010; J3480; J7030; J7040